=== PATIENT | female | born 1960 | race Two or more races ===

== ENCOUNTER 2024-08-30 07:35 | Day surgery (SDC) | payer MEDICAID, SELFPAY ==
--- NOTE | 2024-08-27 07:00 | EKG_ITS ---
[facility] Test Date: 2024-08-27 Pat Name: MARIANO LYONS Department: Room: - Gender: Female [employer]erical [employer] Checker: YANIRA : 1960 Requested By: Maverick Doyle Order Number: [id number] Reading MD: Maverick Doyle Measurements Intervals [place] Rate: 59 P: 9 CA: 145 QRS: 5 QRSD: 90 T: 0 QT: 420 QTc: 417 Interpretive Statements SINUS BRADYCARDIA NONSPECIFIC T-WAVE ABNORMALITY Compared to ECG 07/06/2022 11:45:57 T-wave abnormality now present Sinus rhythm no longer present Ventricular premature complex(es) no longer present /store/S0/[id number]/ecg/[id number].pdf
[2024-08-27 09:53] VITALS: BMI 33.2
[2024-08-27 11:15] LABS: Basophils % (Auto) 1 % (0-2.5); Eosinophils # (Auto) 0.1 Thou/mm3 (0.0-0.5); Eosinophils % (Auto) 2 % (0-10); Hematocrit 39.3 % (36.0-46.0); Hemoglobin 14.3 g/dL (12.0-16.0); Immature Granulocytes % (Auto) 1 % (0-0); Immature Granulocytes Auto 0.03 Thou/mm3 (0.00-0.00); Lymphocytes # (Auto) 1.9 Thou/mm3 (1.0-4.8); Lymphocytes % (Auto) 33 % (10-50); Mean Corpuscular HGB Conc 36.4 g/dl (31.0-37.0); Mean Corpuscular Hemoglobin 32.9 pg (25.0-35.0); Mean Corpuscular Volume 90 fL (80-100); Monocytes # (Auto) 0.5 Thou/mm3 (0.0-0.8); Monocytes % (Auto) 8 % (0-12); Neutrophils # (Auto) 3.3 Thou/mm3 (1.8-7.7); Neutrophils % (Auto) 56 % (37-80); Nucleated Red Blood Cell % 0 /100 WBC (0); Platelet Count 160 Thou/mm3 (140-440); RDW Standard Deviation 39.5 fL (36.4-46.3); Red Blood Count 4.35 Miln/mm3 (4.00-5.20); White Blood Count 5.9 Thou/mm3 (3.6-11.0)
[2024-08-27 11:39] LABS: Alanine Aminotransferase 27 U/L (10-49); Albumin, Serum 4.5 gm/dL (3.4-4.8); Albumin/Globulin Ratio 1.6 (1.2-2.2); Alkaline Phosphatase 110 U/L (46-116); Anion Gap 6 (7-16); Aspartate Amino Transferase 31 U/L (0-34); BUN/Creatinine Ratio 11 Ratio (12-20); Bilirubin,Total 0.5 mg/dL (0.3-1.2); Blood Urea Nitrogen 8 mg/dL (9-23); Calcium 9.5 mg/dL (8.3-10.6); Calcium (Corrected) 9.5 mg/dL (8.5-10.1); Carbon Dioxide 30.4 mMol/L (20.0-31.0); Chloride 102 mMol/L (98-107); Creatinine (Component) 0.7 mg/dL (0.6-1.3); Estimated Creatinine Clearance 78.7 mL/min (>60); Globulin 2.9 gm/dL (2.3-3.5); Glucose 128 mg/dL (74-106); Osmolality,Calculated 275 (275-295); Potassium 4.4 mMol/L (3.4-5.1); Sodium 138 mMol/L (136-145); Total Protein 7.4 gm/dL (5.7-8.2); eGFR > 60 See Note
[2024-08-27 11:43] LABS: Partial Thromboplastin Time 26.3 Seconds (22.0-36.0); Prothrombin Time 10.9 Seconds (9.0-12.2)
[2024-08-30] VITALS (13 sets, daily range): BP systolic 134–188; BP diastolic 88–113; PULSE 59–75; RESP 12–22; TEMP 36.2–36.4; O2SAT 95–100; BMI 33.0
--- NOTE | 2024-08-30 11:49 | PD.SUROPNT ---
Date of Procedure 08/30/24 Pre Op Diagnosis Symptomatic varicose veins both lower extremities Post Op Diagnosis Same as preop diagnosis Procedure Radiofrequency endovenous ablation of the greater saphenous vein right lower extremity High ligation of the left greater saphenous vein Varicose vein excisions in both lower extremities with 16 incisions in the left leg and 14 incisions on the right Findings Successful ablation of the greater saphenous vein without evidence of thrombus in the saphenofemoral junction or common femoral vein Successful high ligation of the left greater saphenous vein All marked varicose veins were successfully removed or disrupted in both lower extremities Procedure Description With the patient standing in the preop area all varicose veins to be removed were carefully marked with a sharpie pen. The patient was then brought to the operating room and laryngeal mask anesthesia was induced. Both lower extremities were sterilely prepped and draped. A timeout was performed. The vein ablation procedure was performed first by mapping out the course of the greater saphenous vein between the knee and the saphenofemoral junction and accessing that vein just above the knee on the medial thigh using ultrasound guidance with a 21-gauge mini stick needle followed by mini stick wire and a 7 Croatian sheath introducer was placed. The ablation cath was brought to the field prepped and placed into the patient with the tip carefully positioned 3 to 5 cm from the saphenofemoral junction. Tumescent anesthesia was instilled in the subcutaneous tissues surrounding the vein over the treatment length. Catheter position was once again checked then under direct ultrasound compression the catheter was activated with 2 cycles proximally and 2 additional cycles down the leg. The saphenofemoral junction and common femoral vein were inspected and found to show good flow [id number] compression good augmentation and no evidence of thrombus in the saphenofemoral junction or the common femoral vein. The ablation catheter was removed and pressure was held and hemostasis was obtained. The high ligation procedure was performed next using ultrasound to pinpoint the junction location and a transverse incision was then made in the groin and blunt and sharp dissection were used to expose the saphenous trunk and it was encircled with an 0 silk tie and ligated. This incision was then closed in layers with 3-0 Vicryl the subcutaneous tissues and a 4 Monocryl subcuticular skin closure and a Dermabond dressing was applied. Attention was then turned to the varicose veins which were managed by making a small skin rosalee at the marked locations then bluntly enlarging this incision with a small mosquito clamp and then sequentially excising or disrupting the veins. After all marked veins in both lower extremities were treated with either removal or disruption hemostasis was obtained the leg was cleaned and then the incisions were reapproximated with Steri-Strips. A 6 sterile dressing was then applied with gauze Kerlix and an Rubin wrap. The patient woke up from anesthesia was moved to recovery in stable condition Anesthesia other (Laryngeal mask anesthesia) Pathology / specimen Other (Varicose veins from both lower extremities) Estimated Blood Loss 100 Condition Stable Disposition PACU Surgeon Maverick Wilson MD Surgical Staff Operation Date: 08/30/24 09:30 Case Staff Anesthesiologist: Destin Jefferson
--- NOTE | 2024-08-30 12:15 | SUR.PHASEI ---
pt received from OR in recovery bay 1. pt asleep but responds to voice, breathing unlabored on nc 5l. v/s stable. pt dressing to bilateral lower extremities cdi. report received from Chance PUCKETT and Fortino BEAVER.
--- NOTE | 2024-08-30 12:26 | SUR.PHASEI ---
Anesthesia provider SARANYA Freitas and Dr. Jefferson aware of high blood pressure, no new orders received. pt blood pressure elevated upon arrival to hospital.
[2024-08-30] MEDS: fentaNYL CIT INJ 50 mCg/ML AMP 2ML 25 MCG IV (12:43)
--- NOTE | 2024-08-30 12:56 | SUR.PHASEII ---
pt able to tolerate oral fluids without difficulty swallowing or nausea/vomiting.
[2024-08-30] MEDS: ONDANSETRON INJ 2 MG/ML INJ 2 ML 4 MG IV (13:10)
[2024-08-30] MEDS: METOCLOPRAMIDE INJ 5 MG/ML VIAL 2 ML 10 MG IVP (13:31)
--- NOTE | 2024-08-30 14:00 | SUR.PHASEII ---
ambulated pt. dressing began to bleed, held pressure for [address] Wilson informed. New orders received. Dressing change performed new steri strips applied. coban dressing applied to apply pressure.
--- NOTE | 2024-08-30 15:26 | SUR.PHASEII ---
pt awake and alert, breathing unlabored on room air. v/s stable. pt dressing to bilateral lower extremities cdi. Dr. Wilson inspected dressing prior to d/c. pt ambulated in Pacu hallway and back to bed, no bleeding noted after ambulation. pt able to ambulate to wheelchair with steady gait. d/c instructions given with Sandeep in room, all questions answered. pt d/c via wheelchair with all belongings.
== END 2024-08-30 15:26 | disposition home or self-care (01) ==
PROVIDERS: Anesthesiology; PCP Nurse Practitioner Family; Referring Provider Surgery Vascular Surgery; Visit Provider Surgery Vascular Surgery
PROC: (CPT 36475; principal; 2024-08-30 09:15)
DX: I83.813 Varicose veins of bilateral lower extremities with pain (principal); Z01.810 Encounter for preprocedural cardiovascular examination
CPT/HCPCS: 36475; 37766; 37700; 36415; 80053; 85025; 85610; 85730; 93005; A4217; A4649; C1888; C1894; J1100; J2250; J2405; J2704; J2765; J3010; J7050

== ENCOUNTER → 2024-11-27 | Outpatient (CLI) | payer MEDICAID, SELFPAY ==
--- NOTE | 2024-11-27 13:30 | XR_ITS ---
Examination: Screening digital mammography, bilateral Computer aided detection 3-D breast Tomosynthesis, bilateral Date and time of exam: November 27, 2024 1224 hours Compared to mammograms dating to January 26, 2016 Indication: Screening Technique: Nonmagnified MLO, CC views of the breasts to been obtained, reconstructed from 3-D Tomosynthesis images. R2 computer aided detection program utilized for evaluation of suspicious masses and/or abnormal calcifications. 3-D Tomosynthesis images obtained. Findings: Scattered areas of fibroglandular density. Benign calcifications. 8mm nodule 12:00 position left breast Impression: BI-RADS Category 0: Incomplete: Need additional imaging evaluation Recommend follow-up spot tomographic views of 8mm nodule 12:00 position left breast as well as left breast sonography to complete the workup
--- NOTE | 2024-11-27 13:45 | XR_ITS ---
Examination: Bone densitometry Date and time of exam:November 27, 2024 1342 hours INDICATIONS: Menopause age 57 levothyroxine 10 years Technique: Lumbar spine and hip total bone mineralization values of an calculated. Peak reference and age match control results have been displayed. Findings: Lumbar spine total bone mineralization is1.016 gm/cm2. This is 0.3 standard deviations below peak reference. This is 1.4 standard deviations above age-matched controls. Hip total bone mineralization is 1.011 gm/cm2 This is 0.4 standard deviations above peak reference. This is 1.4 standard deviations above age-matched controls Impression: There is normal mineralization based on lumbar spine measurements. There is osteopenia based on hip measurements Lumbar mineralization is decreased 4.9% compared with March 09, 2016 Hip mineralization is increase 4.0% compared with March 09, 2016
== END | disposition home or self-care (01) ==
PROVIDERS: Referring Provider Nurse Practitioner Family; Visit Provider Nurse Practitioner Family
DX: Z12.31 Encounter for screening mammogram for malignant neoplasm of breast (principal); Z13.820 Encounter for screening for osteoporosis; N63.25 Unspecified lump in the left breast, overlapping quadrants; M85.89 Other specified disorders of bone density and structure, multiple sites
CPT/HCPCS: 77063; 77067; 77080

== ENCOUNTER → 2025-01-24 | Outpatient (CLI) | payer MEDICAID, SELFPAY ==
--- NOTE | 2025-01-24 08:30 | XR_ITS ---
Examination: Breast ultrasound, unilateral, left complete Date and time of exam: January 24, 2025, 0852 hours INDICATIONS: Mammogram November 27, 2024 8 mm nodule 12 o'clock position left breast Technique: Real-time dawson scale ultrasonographic imaging performed left breast including all 4 quadrants as well as nipple retroareolar and axillary region. Findings: 8:00 cyst 6 x 5 mm No solid nodules IMPRESSION: BI-RADS Category 2: Benign findings
--- NOTE | 2025-01-24 09:00 | XR_ITS ---
Examination: Diagnostic digital mammography, unilateral, left Computer aided detection 3-D breast Tomosynthesis, unilateral Date and time of exam: January 24, 2025, 0901 hours INDICATIONS: Mammogram November 27, 2024 8 mm nodule 12 o'clock position left breast indistinct margins Technique: Nonmagnified MLO, CC views of the left breast have been obtained, reconstructed from 3-D Tomosynthesis images. R2 computer aided detection program utilized for evaluation of suspicious masses and/or abnormal calcifications. 3-D Tomosynthesis images obtained. Findings: Scattered areas of fibroglandular density. No suspicious nodule is noted on the spot compression views Impression: BI-RADS category 2: Benign findings Return to yearly follow-up mammography
== END | disposition home or self-care (01) ==
LOC: CDIM 08:04
PROVIDERS: Referring Provider Nurse Practitioner Family; Visit Provider Nurse Practitioner Family
DX: R92.2 Inconclusive mammogram (principal); N63.0 Unspecified lump in unspecified breast
CPT/HCPCS: 76641; 77061; 77065; G0279